=== PATIENT | female | born 1955 | race Caucasian/White ===

== ENCOUNTER 2021-07-11 00:32 | Emergency (ER) | payer SELFPAY ==
[~2021-07-11] VITALS: Ht 162.6 cm; Wt 73.0 kg
[2021-07-11] MEDS ORDERED: TETANUS, DIPHTHERIA, PERTUSSIS VAC/PF 0.5ML (>7YR OLD) IM ONE (01:00)
[2021-07-11] MEDS ORDERED: KETOROLAC 15MG/ML VIAL IV ONE (01:00)
[2021-07-11 01:05] LABS: BASOPHILS % 0.9 % (0.0-2.0); EOSINOPHILS % 5.5 % (0.0-5.0); HEMATOCRIT. 28.5 % (36.0-48.0); LYMPHOCYTES % 42.4 % (20.0-50.0); MEAN CORPUSCULAR HEMOGLOBIN 31.1 pg (28.0-32.0); MEAN CORPUSCULAR VOLUME 88.7 fL (81.0-99.0); MEAN PLATELET VOLUME 7.5 fl (7.4-10.4); MONOCYTES % 6.5 % (2.0-8.0); NEUTROPHILS % 44.7 % (40.0-76.0); PLATELET 283 x1000/uL (130-400); RED BLOOD CELL COUNT 3.22 mill/uL (4.2-5.4); RED CELL DISTRIBUTION WIDTH 13.5 % (11.6-14.6)
[2021-07-11 01:13] LABS: CHLORIDE 103 mEq/L (98-107)
[2021-07-11 03:30] VITALS: BP 197/80
[2021-07-11] MEDS ORDERED: FUROSEMIDE 40MG TABLET PO SCH (04:00)
== END 2021-07-11 07:25 | disposition home or self-care (01) ==
LOC: ER 00:32
DX: R55 Syncope and collapse (principal); E11.9 Type 2 diabetes mellitus without complications; I10 Essential (primary) hypertension
CPT/HCPCS: 36415; 70450; 71045; 80053; 83880; 84484; 85025; 90471; 90715; 93005; 96374; 99285; J1885